=== PATIENT | female | born 1945 | race Caucasian/White ===

== ENCOUNTER → 2025-01-05 | Outpatient (REF) | payer MEDICARE, OTHER ==
[2025-01-05 15:10] LABS: CREATININE,URINE RANDOM 54.4 mg/dL (47-110)
[2025-01-05 15:16] LABS: CALCIUM IONIZED 1.3 mmol/L (1.09-1.30)
[2025-01-05 15:37] LABS: CALCIUM 10.7 mg/dL (8.4-10.2); CREATININE, SERUM 0.93 mg/dL (0.57-1.11)
[2025-01-06 08:10] LABS: CALCIUM 10.3 mg/dL (8.7-10.3)
[2025-01-06 09:10] LABS: ABG HCO3 33 mmol/L (22-26); ABG PCO2 65 mmHg (35-45); ABG PH 7.31 (7.35-7.45); ABG PO2 26 mmHg (80-105); ABG TCO2 34
== END ==
LOC: LAB 12:00
PROVIDERS: ATTEND Physician Assistant Surgical
DX: E21.3 Hyperparathyroidism, unspecified (principal)
CPT/HCPCS: 36415; 82310; 82575; 82805; 83970